=== PATIENT | male | born 1970 | race Caucasian/White ===

== ENCOUNTER 2017-01-11 10:08 | Emergency (ER) | payer BC ==
[~2017-01-11] VITALS: Ht 188 cm; Wt 115.9 kg
[2017-01-11 10:10] VITALS: BP 133/83
== END 2017-01-11 11:14 | disposition home or self-care (01) ==
LOC: ED 10:55
DX: L23.9 Allergic contact dermatitis, unspecified cause (principal)
CPT/HCPCS: 99283